=== PATIENT | female | born 1960 | race American Indian/Alaskan Native ===

== ENCOUNTER 2017-02-23 13:57 | Emergency (ER) | payer BC ==
[2017-02-23 13:57] VITALS: BMI 25.0
[2017-02-23 14:16] VITALS: BP 137/84; PULSE 90; RESP 18; TEMP 98.4; O2SAT 96
--- NOTE | 2017-02-23 14:45 | C.PDOC ---
History Of Present Illness 56 yr old female presents to the ER stating while walking up the stairs yesterday and stubbed her left toe. Patient states today she noted pain and swelling to the left 3rd toe. Denies any other injury, change of sensation in the foot or leg pain. Took oxycodone for the pain. Time Seen by Provider: 02/23/17 14:18 Chief Complaint (Nursing): Lower Extremity Problem/Injury History Per: Patient History/Exam Limitations: no limitations Onset/Duration Of Symptoms: Days (1) Current Symptoms Are (Timing): Still Present Past Medical History Reviewed: Historical Data, Nursing Documentation, Vital Signs Vital Signs: Last Vital Signs Temp 98.4 F 02/23/17 14:11 Pulse 90 02/23/17 14:11 Resp 18 02/23/17 14:11 BP 137/84 02/23/17 14:11 Pulse Ox 96 02/23/17 15:53 - Medical History PMH: Arthritis (KNEES), Diabetes, Malignancy (breast Ca) Surgical History: Cholecystectomy - [facility] Procedures ESOPHAGOGASTRODUODENOSCOPY [EGD] W/CLOSED BIOPSY (08/20/14) INJECT STEROID (12/06/12) INJECT/INFUSE NEC (11/22/06) LOCAL EXCIS BREAST LES (12/22/13) LUMBOSAC SPINE X-RAY NEC (12/06/12) SPINAL CANAL INJECT NEC (12/06/12) Family History: States: Diabetes - Social History Hx Tobacco Use: No Hx Alcohol Use: No Hx Substance Use: No - Immunization History Hx Tetanus Toxoid Vaccination: No Hx Influenza Vaccination: No Hx Pneumococcal Vaccination: No Review Of Systems Except As Marked, All Systems Reviewed And Found Negative. Musculoskeletal: Positive for: Other ((+) Left foot, 3rd toe pain and swelling) . Negative for: Leg Pain Neurological: Negative for: Weakness, Numbness Physical Exam - Physical Exam Appears: Non-toxic, No Acute Distress Skin: Warm, Dry, No Rash Head: Atraumatic, Normacephalic Eye(s): bilateral: Normal Inspection, EOMI Nose: Normal Oral Mucosa: Moist Chest: Symmetrical Respiratory: No Accessory Muscle Use Extremity: No Calf Tenderness, Capillary Refill (<2 sec), Other ((+) Left Foot, 3rd Toe - Tenderness, swelling and ecchymotic.) Pulses: Left Dorsalis Pedis: Normal, Right Dorsalis Pedis: Normal Neurological/Psych: Oriented x3, Normal Speech, Normal Sensation ED Course And Treatment O2 Sat by Pulse Oximetry: 96 (RA) Pulse Ox Interpretation: Normal - Other Rad X-Ray - Left Foot, 3rd Toe X-Ray: Viewed By Me, Read By Radiologist Interpretation: PROCEDURE: Radiographs of the left foot/ 3rd digit. TECHNIQUE: : AP radiograph of the left foot, with oblique and lateral view of the left 3rd digit. COMPARISON: None. FINDINGS: BONES: There is a fracture of the medial base of the middle phalanx which appears articular and minimally displaced laterally. No additional fractures seen throughout the left foot as imaged. JOINTS: No subluxation or dislocation throughout. Degenerate joint space narrowing and articular cortical sclerosis appreciate throughout the interphalangeal joints diffusely and is also present throughout the midfoot and hindfoot joints but less prominent than at the forefoot. Metatarsal-phalangeal joint superior least affected with exception of the 1st metatarsal phalangeal joint which is mildly degenerated. There is a mild hallux valgus deformity. SOFT TISSUES: Edema is seen medial to the 1st metatarsal phalangeal joint. OTHER FINDINGS: None. IMPRESSION: Minimally medially displaced fracture of the base of middle phalanx left 3rd digit which is articular. No dislocation. Progress Note: Toe was sarah taped and cast shoe was placed by hardware technician. Patient instructed to follow up with Podiatry in 1-2 days and RICE. Medical Decision Making Medical Decision Making: PLAN: * X-Ray - Left foot, 3rd Toe Disposition - Disposition Referrals: Jasper Scott MD [Staff Provider] - Jeff Guerin DPM [Doctor Podiatric Medicine] - Disposition: HOME/ ROUTINE Disposition Time: 14:43 Condition: STABLE Additional Instructions: Follow up with your primary doctor in 1-2 days. Return to ER if symptoms persist or worsen. Prescriptions: Naproxen [Naprosyn] 1 tab PO BID PRN #20 tab PRN Reason: Pain Instructions: Toe Fracture (ED) Forms: [facility] (Estonian) - Clinical Impression Clinical Impression: Toe fracture - PA / PEDODONTIST / Resident Statement MD/DO has reviewed & agrees with the documentation as recorded. - Scribe Statement The provider has reviewed the documentation as recorded by the Scribe Roslyn Joyner All medical record entries made by the Scribe were at my direction and personally dictated by me. I have reviewed the chart and agree that the record accurately reflects my personal performance of the history, physical exam, medical decision making, and the department course for this patient. I have also personally directed, reviewed, and agree with the discharge instructions and disposition.
--- NOTE | 2017-02-23 15:16 | RAD ---
PROCEDURE: Radiographs of the left foot/ 3rd digit. TECHNIQUE:: AP radiograph of the left foot, with oblique and lateral view of the left 3rd digit. COMPARISON: None. FINDINGS: BONES: There is a fracture of the medial base of the middle phalanx which appears articular and minimally displaced laterally. No additional fractures seen throughout the left foot as imaged. JOINTS: No subluxation or dislocation throughout. Degenerate joint space narrowing and articular cortical sclerosis appreciate throughout the interphalangeal joints diffusely and is also present throughout the midfoot and hindfoot joints but less prominent than at the forefoot. Metatarsal-phalangeal joint superior least affected with exception of the 1st metatarsal phalangeal joint which is mildly degenerated. There is a mild hallux valgus deformity. SOFT TISSUES: Edema is seen medial to the 1st metatarsal phalangeal joint. OTHER FINDINGS: None. IMPRESSION: Minimally medially displaced fracture of the base of middle phalanx left 3rd digit which is articular. No dislocation.
== END 2017-02-23 15:40 | disposition home or self-care (01) ==
LOC: C.ER 13:57
DX: S92.522A Displaced fracture of middle phalanx of left lesser toe(s), initial encounter for closed fracture (principal); W22.8XXA Striking against or struck by other objects, initial encounter; Y93.01 Activity, walking, marching and hiking